=== PATIENT | female | born 1980 | race Caucasian/White ===

== ENCOUNTER 2017-03-27 11:35 | Inpatient (IN) | payer OTHER ==
[~2017-03-27] VITALS: Ht 175.3 cm; Wt 104.4 kg
[2017-03-27 21:11] VITALS: PULSE 76
[2017-03-27 21:12] VITALS: Ht 175.3 cm; Wt 104.4 kg
[2017-03-27 21:14] VITALS: BP 123/64; RESP 17
[2017-03-27] MEDS ORDERED: ONDANSETRON 4 MG INJ IV PRN (22:00)
[2017-03-27] MEDS ORDERED: DOCUSATE SODIUM 100 MG CAP PO PRN (22:00)
[2017-03-27] MEDS ORDERED: NACL 0.9% 3 ML SYG IV SCH (22:00)
[2017-03-27] MEDS: CEFTRIAXONE 1 GM/50 ML (PMX) 50 ML IVPB SCH (23:06)
[2017-03-28] VITALS (12 sets, daily range): BP systolic 94–109; BP diastolic 54–66; PULSE 65–75; RESP 17–19
[2017-03-28] MEDS ORDERED: DOCU-144 PO (02:51)
[2017-03-28 06:22] LABS: BASOPHILS % 0.5 % (0.0-2.0); EOSINOPHILS # 0.2 10^3/ul (0.0-0.5); EOSINOPHILS % 3.5 % (0.0-7.0); HEMATOCRIT 34.3 % (37.0-47.0); LYMPHOCYTES # 2.1 10^3/ul (0.8-2.9); LYMPHOCYTES % 30.8 % (15.0-51.0); MEAN CORPUSCULAR HEMOGLOBIN 30.5 pg (29.0-33.0); MEAN CORPUSCULAR HGB CONC 32.1 g/dl (32.0-37.0); MEAN PLATELET VOLUME 10.3 fl (7.4-10.4); MONOCYTE # 0.5 10^3/ul (0.3-0.9); MONOCYTES % 7.8 % (0.0-11.0); NEUTROPHIL # 3.8 10^3/ul (1.6-7.5); NEUTROPHILS % 57.1 % (39.0-77.0); PLATELET COUNT 273 10^3/UL (140-415); RED BLOOD COUNT 3.61 10^6/ul (4.20-5.40); RED CELL DISTRIBUTION WIDTH 13.4 % (11.5-14.5); WHITE BLOOD COUNT 6.7 10^3/ul (4.8-10.8)
[2017-03-28 06:48] LABS: CALCIUM 8.4 mg/dl (8.4-10.2); CREATININE 0.68 mg/dl (0.44-1.00); POTASSIUM 4.6 mmol/L (3.5-5.1)
[2017-03-28] MEDS: MULTIVITAMINS THERAPEUTIC TAB PO SCH (08:06)
[2017-03-28] MEDS: FAMOTIDINE 20 MG TAB NGT SCH ×2 (08:06→21:06)
[2017-03-28] MEDS: ACETAMINOPHEN 325 MG TAB PO PRN ×2 (08:06→15:34)
[2017-03-28] MEDS: ENOXAPARIN 40 MG/0.4 ML SYG SC SCH (08:13)
--- NOTE | 2017-03-28 13:50 | PN ---
Date/Time of Note Date/Time of Note DATE: 03/28/17 TIME: 13:50 Assessment/Plan VTE Prophylaxis VTE Prophylaxis Intervention: ambulation Lines/Catheters IV [facility] Saline Lock Urinary Cath still in place: No Assessment/Plan Chief Complaint/Hosp Course 1. Vaginal bleeding 2. pt, vaginal delivery date per chart 03/18/2017, did not survive 3. Overweight 4. Left v. saphena thrombosis. Problems: Assessment/Plan 1. GYNecology on awake counselor Dr Cosme, talked to him 2. Dr Arthur for hematology consult, being called 3. DVT treatment started in [facility], continue 4. morning labs Subjective 24 Hr Interval Summary Constitutional: no complaints Respiratory: no complaints Gastrointestinal: no complaints Genitourinary: bleeding (vaginally ) Exam/Review of Systems Vital Signs Vitals Vital Signs Date Time Temp Pulse Resp B/P Pulse Ox O2 Delivery O2 Flow Rate FiO2 03/28/17 12:05 71 03/28/17 11:25 97.6 18 108/59 99 Intake and Output 03/27/17 03/27/17 03/28/17 15:00 23:00 07:00 Intake Total 170 ml Balance 170 ml Exam bilateral breast pain Constitutional: alert, oriented Psych: no complaints Head: normocephalic Eyes: nl conjunctiva Neck: supple Respiratory: clear to auscultation Cardiovascular: regular rate and rhythm Gastrointestinal: soft Genitourinary - Female: other (vaginal bleeding) Musculoskeletal: swelling (left thigh) Extremities: normal pulses Results Result Diagram: 03/28/17 0600 03/28/17 0600 Results 24 hrs Laboratory Tests Test 03/28/17 06:00 White Blood Count 6.7 Red Blood Count 3.61 L Hemoglobin 11.0 L Hematocrit 34.3 L Mean Corpuscular Volume 95.0 Mean Corpuscular Hemoglobin 30.5 Mean Corpuscular Hemoglobin Concent 32.1 Red Cell Distribution Width 13.4 Platelet Count 273 Mean Platelet Volume 10.3 Neutrophils % 57.1 Lymphocytes % 30.8 Monocytes % 7.8 Eosinophils % 3.5 Basophils % 0.5 Nucleated Red Blood Cells % 0.0 Neutrophils # 3.8 Lymphocytes # 2.1 Monocytes # 0.5 Eosinophils # 0.2 Basophils # 0.0 Nucleated Red Blood Cells # 0.0 Sodium Level 141 Potassium Level 4.6 Chloride Level 106 Carbon Dioxide Level 24 Anion Gap 16 Blood Urea Nitrogen 13 Creatinine 0.68 Glucose Level 89 Calcium Level 8.4 Medications Medications Current Medications Acetaminophen (Tylenol Tab) 650 mg Q4H PRN PO PAIN AND OR ELEVATED TEMP Last administered on 03/28/17 08:06; Admin Dose 650 MG; Start 03/27/17 at 22:00 Ondansetron HCl (Zofran Inj) 4 mg Q6H PRN IV NAUSEA AND/OR VOMITING; Start 03/03 at 22:00 Famotidine (Pepcid) 20 mg BID NGT Last administered on 03/28/17 08:06; Admin Dose 20 MG; Start 03/28/17 at 09:00 Enoxaparin Sodium 40 mg 40 mg DAILY SC Last administered on 03/28/17 08:13; Admin Dose 40 MG; Start 03/28/17 at 09:00 Ceftriaxone Sodium (Rocephin) 50 ml @ 100 mls/hr Q24H IVPB Last administered on 03/27/17 23:06; Admin Dose 100 MLS/HR; Start 03/27/17 at 22:00 Docusate Sodium (Colace) 100 mg BID PRN PO CONSTIPATION; Start 03/27/17 at 22: 00 Multivitamins Therapeutic (Theragran) 1 tab DAILY PO Last administered on 03/28 08:06; Admin Dose 1 TAB; Start 03/28/17 at 09:00 FERCHO JULES Mar 28, 2017 13:50
--- NOTE | 2017-03-28 16:58 | QN ---
Documentation Comment pt with normal amount of vag bleeding post delivery hh stable vss a/p superficial thrombphlebitis-treat as needed vag bleeding is normal-hh 11 and minimla bleeding per pt signing off. reconsult as needed KERRY JOSE MD Mar 28, 2017 16:58
[2017-03-28] MEDS: CEFTRIAXONE 1 GM/50 ML (PMX) 50 ML IVPB SCH (21:06)
[2017-03-29] VITALS (12 sets, daily range): BP systolic 95–107; BP diastolic 55–66; PULSE 60–110; RESP 16–21
[2017-03-29 06:39] LABS: BASOPHILS % 0.5 % (0.0-2.0); EOSINOPHILS # 0.3 10^3/ul (0.0-0.5); EOSINOPHILS % 3.9 % (0.0-7.0); HEMATOCRIT 35.2 % (37.0-47.0); HEMOGLOBIN 11.2 g/dl (12.0-16.0); LYMPHOCYTES # 1.7 10^3/ul (0.8-2.9); LYMPHOCYTES % 27.2 % (15.0-51.0); MEAN CORPUSCULAR HEMOGLOBIN 30.3 pg (29.0-33.0); MEAN CORPUSCULAR HGB CONC 31.8 g/dl (32.0-37.0); MEAN CORPUSCULAR VOLUME 95.1 fl (82.0-101.0); MEAN PLATELET VOLUME 10.7 fl (7.4-10.4); MONOCYTE # 0.5 10^3/ul (0.3-0.9); MONOCYTES % 7.7 % (0.0-11.0); NEUTROPHIL # 3.8 10^3/ul (1.6-7.5); NEUTROPHILS % 60.2 % (39.0-77.0); PLATELET COUNT 292 10^3/UL (140-415); RED CELL DISTRIBUTION WIDTH 13.1 % (11.5-14.5); WHITE BLOOD COUNT 6.4 10^3/ul (4.8-10.8)
[2017-03-29 07:23] LABS: CALCIUM 8.7 mg/dl (8.4-10.2); CREATININE 0.7 mg/dl (0.44-1.00); POTASSIUM 4.8 mmol/L (3.5-5.1)
[2017-03-29] MEDS: MULTIVITAMINS THERAPEUTIC TAB PO SCH (08:51)
[2017-03-29] MEDS: FAMOTIDINE 20 MG TAB NGT SCH ×2 (08:51→20:45)
[2017-03-29] MEDS: ENOXAPARIN 40 MG/0.4 ML SYG SC SCH (08:57)
--- NOTE | 2017-03-29 10:22 | PN ---
Date/Time of Note Date/Time of Note DATE: 03/29/17 TIME: 10:19 Assessment/Plan VTE Prophylaxis VTE Prophylaxis Intervention: LMWH Lines/Catheters IV [facility] Saline Lock Urinary Cath still in place: No Assessment/Plan Chief Complaint/Hosp Course 1. Vaginal bleeding 2. pt, vaginal delivery date per chart 03/18/2017, did not survive 3. Overweight 4. Left v. saphena thrombosis. Problems: Assessment/Plan 1. Continue Lovenox Subjective 24 Hr Interval Summary Constitutional: improved, no complaints Exam/Review of Systems Vital Signs Vitals Vital Signs Date Time Temp Pulse Resp B/P Pulse Ox O2 Delivery O2 Flow Rate FiO2 03/29/17 08:02 68 03/29/17 07:23 98.3 21 100/60 95 Intake and Output 03/28/17 03/28/17 03/29/17 15:00 23:00 07:00 Intake Total 550 ml 220 ml Balance 550 ml 220 ml Exam Constitutional: alert, oriented Respiratory: clear to auscultation Cardiovascular: regular rate and rhythm Genitourinary - Female: other (changing the pads every 4 hours, scant ampont dark red blood) Results Result Diagram: 03/29/17 0552 03/29/17 0552 Results 24 hrs Laboratory Tests Test 03/29/17 05:52 White Blood Count 6.4 Red Blood Count 3.70 L Hemoglobin 11.2 L Hematocrit 35.2 L Mean Corpuscular Volume 95.1 Mean Corpuscular Hemoglobin 30.3 Mean Corpuscular Hemoglobin Concent 31.8 L Red Cell Distribution Width 13.1 Platelet Count 292 Mean Platelet Volume 10.7 H Neutrophils % 60.2 Lymphocytes % 27.2 Monocytes % 7.7 Eosinophils % 3.9 Basophils % 0.5 Nucleated Red Blood Cells % 0.0 Neutrophils # 3.8 Lymphocytes # 1.7 Monocytes # 0.5 Eosinophils # 0.3 Basophils # 0.0 Nucleated Red Blood Cells # 0.0 Sodium Level 142 Potassium Level 4.8 Chloride Level 107 Carbon Dioxide Level 25 Anion Gap 15 Blood Urea Nitrogen 15 Creatinine 0.70 Glucose Level 85 Calcium Level 8.7 Medications Medications Current Medications Acetaminophen (Tylenol Tab) 650 mg Q4H PRN PO PAIN AND OR ELEVATED TEMP Last administered on 03/28/17t 15:34; Admin Dose 650 MG; Start 03/27/17 at 22:00 Ondansetron HCl (Zofran Inj) 4 mg Q6H PRN IV NAUSEA AND/OR VOMITING; Start 03/03 at 22:00 Famotidine (Pepcid) 20 mg BID NGT Last administered on 03/29/17 08:51; Admin Dose 20 MG; Start 03/28/17 at 09:00 Enoxaparin Sodium 40 mg 40 mg DAILY SC Last administered on 03/29/17 08:57; Admin Dose 40 MG; Start 03/28/17 at 09:00 Ceftriaxone Sodium (Rocephin) 50 ml @ 100 mls/hr Q24H IVPB Last administered on 03/28/17 21:06; Admin Dose 100 MLS/HR; Start 03/27/17 at 22:00 Docusate Sodium (Colace) 100 mg BID PRN PO CONSTIPATION; Start 03/27/17 at 22: 00 Multivitamins Therapeutic (Theragran) 1 tab DAILY PO Last administered on 03/29 08:51; Admin Dose 1 TAB; Start 03/28/17 at 09:00 FERCHO JULES Mar 29, 2017 10:22
[2017-03-29] MEDS: CIPROFLOXACIN 250 MG TAB PO SCH (17:29)
[2017-03-30] VITALS (10 sets, daily range): BP systolic 97–115; BP diastolic 51–73; PULSE 63–75; RESP 16–20
[2017-03-30] MEDS: CIPROFLOXACIN 250 MG TAB PO SCH ×2 (06:19→18:42)
--- NOTE | 2017-03-30 08:24 | CONS ---
Date/Time of Note Date/Time of Note DATE: 03/30/17 TIME: 08:22 Assessment/Plan Assessment/Plan Chief Complaint/Hosp Course 36 yo with DVT post #continue Xarelto 15mg po BID x 3 weeks followed by 20 mg q day #Will perform hypercoagulable workup as an out patient #Repeat ultrasound as an out patient Problems: Consultation Date/Type/Reason Admit Date/Time Mar 27, 2017 at 20:46 Initial Consult Date March 30 Type of Consultation: Hematology Reason for Consultation DVT with post bleeding Referring Provider: PETER MOREAU MD 24 HR Interval Summary Free Text/Dictation e. Exam/Review of Systems Vital Signs Vitals Vital Signs Date Time Temp Pulse Resp B/P Pulse Ox O2 Delivery O2 Flow Rate FiO2 03/30/17 08:15 68 03/30/17 07:44 98.1 20 97/60 100 Intake and Output 03/29/17 03/29/17 03/30/17 15:00 23:00 07:00 Intake Total 600 ml 300 ml Balance 600 ml 300 ml Exam Constitutional: alert, oriented Psych: no complaints Head: normocephalic Eyes: nl conjunctiva ENMT: nl external ears & nose Neck: non-tender, supple Respiratory: clear to auscultation, normal air movement Cardiovascular: nl pulses, regular rate and rhythm Gastrointestinal: soft Genitourinary - Female: other (cystic lump under left labia) Musculoskeletal: nl extremities to inspection, other (left thigh swelling) Neurological: SUPERVISOR ELECTROLYTIC TINNING II-XII intact Results Result Diagram: 03/29/17 0552 03/29/17 0552 Imaging Free Text/Dictation Bilateral LE AJ 03/26/17 Thrombosed tortuous and enlarged superficial vein in region of the great saphenous vein the left mid thigh area. Consistent with superficial thrombophlebitis. No evidence of DVT Medications Medications Current Medications Acetaminophen (Tylenol Tab) 650 mg Q4H PRN PO PAIN AND OR ELEVATED TEMP Last administered on 03/28/17 15:34; Admin Dose 650 MG; Start 03/27/17 at 22:00 Ondansetron HCl (Zofran Inj) 4 mg Q6H PRN IV NAUSEA AND/OR VOMITING; Start 03/03 at 22:00 Famotidine (Pepcid) 20 mg BID NGT Last administered on 03/29/17 20:45; Admin Dose 20 MG; Start 03/28/17 at 09:00 Enoxaparin Sodium (Lovenox) 40 mg DAILY SC Last administered on 03/29/17 08: 57; Admin Dose 40 MG; Start 03/28/17 at 09:00 Docusate Sodium (Colace) 100 mg BID PRN PO CONSTIPATION; Start 03/27/17 at 22: 00 Multivitamins Therapeutic (Theragran) 1 tab DAILY PO Last administered on 03/29 08:51; Admin Dose 1 TAB; Start 03/28/17 at 09:00 Ciprofloxacin (Cipro) 250 mg BID@06,18 PO Last administered on 03/30/17 06:19 ; Admin Dose 250 MG; Start 03/29/17 at 18:00 RADHA CHRISTIANSEN M.D. Mar 30, 2017 08:23
[2017-03-30] MEDS: FAMOTIDINE 20 MG TAB NGT SCH ×2 (09:02→21:11)
[2017-03-30] MEDS: MULTIVITAMINS THERAPEUTIC TAB PO SCH (09:02)
[2017-03-30] MEDS: ENOXAPARIN 40 MG/0.4 ML SYG SC SCH (09:07)
--- NOTE | 2017-03-30 09:38 | CONS ---
Date/Time of Note Date/Time of Note DATE: 03/30/17 TIME: 09:35 Assessment/Plan Assessment/Plan Chief Complaint/Hosp Course 36 yo with superficial thrombosis of the left mid thigh area in the post setting. Pt currently on anticoagulation and is no longer having post bleeding. #continue Xarelto 15mg po BID x 3 weeks followed by 20 mg q day #Will perform hypercoagulable workup as an out patient #Repeat ultrasound as an out patient A total of 50 minutes of face to face time was spent speaking with the patient, of which greater than 50% was spent in counseling and coordination of care and the detailed question and answer session. Problems: Consultation Date/Type/Reason Admit Date/Time Mar 27, 2017 at 20:46 Date of Consultation: Mar 30, 2017 Type of Consultation: Hematology Reason for Consultation LLE superficial thrombophlebitis Referring Provider: PETER MOREAU MD Hx of Present Illness 36 yo female with multiple prior pregnancies, who recently was admitted to [facility] to deliver a baby. Pt unfortunately had a sill . She was also with superficial thrombosis of LLE region for which she is now on anticoagulation. Pt was having typical post bleeding which has since subsided. Her Hg is currently stable. Constitutional: no complaints Respiratory: no complaints Gastrointestinal: no complaints Genitourinary: bleeding (vaginally ) Psychological: no complaints Past Surgical History Appendectomy in 1993 Family History Significant Family History: no pertinent family hx Social History Alcohol Use: none Smoking Status: Never smoker Drug Use: none Exam/Review of Systems Vital Signs Vitals Vital Signs Date Time Temp Pulse Resp B/P Pulse Ox O2 Delivery O2 Flow Rate FiO2 03/30/17 08:15 68 03/30/17 07:44 98.1 20 97/60 100 Intake and Output 03/29/17 03/29/17 03/30/17 15:00 23:00 07:00 Intake Total 600 ml 300 ml Balance 600 ml 300 ml Exam Constitutional: alert, oriented Psych: no complaints Head: normocephalic Eyes: nl conjunctiva ENMT: nl external ears & nose Neck: non-tender, supple Respiratory: clear to auscultation, normal air movement Cardiovascular: regular rate and rhythm Musculoskeletal: other (L thigh swelling) Results Bilateral LE AJ 03/26/17 Thrombosed tortuous and enlarged superficial vein in region of the great saphenous vein the left mid thigh area. Consistent with superficial thrombophlebitis. No evidence of DVT Result Diagram: 03/29/1752 03/29/1752 Medications Medications Current Medications Acetaminophen (Tylenol Tab) 650 mg Q4H PRN PO PAIN AND OR ELEVATED TEMP Last administered on 03/28/17 15:34; Admin Dose 650 MG; Start 03/27/17 at 22:00 Ondansetron HCl (Zofran Inj) 4 mg Q6H PRN IV NAUSEA AND/OR VOMITING; Start 03/03 at 22:00 Famotidine (Pepcid) 20 mg BID NGT Last administered on 03/30/17 09:02; Admin Dose 20 MG; Start 03/28/17 at 09:00 Enoxaparin Sodium (Lovenox) 40 mg DAILY SC Last administered on 03/30/17 09: 07; Admin Dose 40 MG; Start 03/28/17 at 09:00 Docusate Sodium (Colace) 100 mg BID PRN PO CONSTIPATION; Start 03/27/17 at 22: 00 Multivitamins Therapeutic (Theragran) 1 tab DAILY PO Last administered on 03/30 09:02; Admin Dose 1 TAB; Start 03/28/17 at 09:00 Ciprofloxacin (Cipro) 250 mg BID@,18 PO Last administered on 03/30/17 06:19 ; Admin Dose 250 MG; Start 03/29/17 at 18:00 RADHA CHRISTIANSEN M.D. Mar 30, 2017 09:38
--- NOTE | 2017-03-30 11:33 | PDOCDIS ---
Discharge Instructions DIAGNOSIS Discharge Diagnosis Superficial thrombophelbitis > 5 cm Post CONDITION Patient Condition: Fair HOME CARE INSTRUCTIONS: Diet Instructions: Reduced SodiumSpecial Diet: Regular ACTIVITY: Activity Restrictions: Slowly Increase Activity FOLLOW UP/APPOINTMENTS Follow-up Plan f/u PCP in 1 week f/u Dr Arthur in 3 weeks f/u OBGYN ( her own ) in 2 -3 weeks Return to Er if noticed severe vaginal bleeding, hematuria, hematemejuan manuel ortega brbpr BHASIN, RUCHIKA MD Mar 30, 2017 11:33
[2017-03-30] MEDS ORDERED: CIPR-193 PO (11:35)
--- NOTE | 2017-03-30 14:40 | HP ---
DATE OF ADMISSION: 03/27/2017 REASON FOR ADMISSION: Transfer from [facility] for insurance reason. The patient has supe rficial thrombus of the left saphenous vein. HISTORY OF PRESENT ILLNESS: This is a 36-year-old woman with a past medical history of a vaginal bi rth delivery, she had delivered her eighth child which was a stillbirth 7 days ago 03/18/2017 after that she started noticing a left groin pain with the left lump. The pain was getting worse and made her worried and came to the emergency department in the [facility]. The patient had a DVT of the left leg that showed thrombus tortuous and large superficial vein in the region of the left great saphenous vein in the mid thigh area consistent with superficial thrombophlebitis. No sonogra phic evidence of deep vein thrombosis; however, patient was having bleeding. H and H, he moglobin was 10.9. The patient was seen by hematology and also with CHUCK TENDER. During the admission a nd per hematology patient can be started on Lovenox 40 and can be switched to Xarelto. The patient was seen by CHUCK TENDER as per them there were no contraindications for starting on anticoagulation. The patient was then transferred to [facility] for insurance reason. Currently, the patient denies any complaints, just except that she has left groin pain. PAST MEDICAL HISTORY: No significant past medical history. ALLERGIES: NONE. PAST SURGICAL HISTORY: Appendectomy in 1993, at 14 years. FAMILY HISTORY: No family history of any blood clotting disorder. SOCIAL HISTORY: Denies any history of smoking, alcohol or any drug use. Currently lives at home, h as 7 children, all delivered vaginally. No history of stillbirths in the past. REVIEW OF SYSTEMS: The patient denied any chest pain, any shortness of breath, any dizziness. Juan Manuel es any orthopnea, PND. Has some mild lower extremity edema. Denies any hematemesis, any melena. T he patient has been having some saturating some pads 1 to 2 pads per day after her delivery. Denies any hematemesis, any melena. Denies any focal neurological deficits. PHYSICAL EXAMINATION: VITAL SIGNS: Heart rate 89, saturating 96%, blood pressure 115/81, respirations 18. The patient is afebrile. GENERAL: Patient is awake, alert, oriented, does not appear to be in any acute distress. HEENT: Pupils equal, round, reactive to light. NECK: Supple, no JVD. HEART: Regular rate and rhythm. No murmur, rub or gallop. LUNGS: Clear to auscultate bilaterally. ABDOMEN: Soft, nontender, nondistended, positive normoactive bowel sounds. EXTREMITIES: Patient has tenderness and swelling and induration to the left proximal medial thigh e xtending to the left groin region. The patient also has a left Bartholin's cyst in the left labial region. NEUROLOGIC: Nonfocal. DIAGNOSTIC DATA: White count was 7.8, hemoglobin was 10.9. Patient had an ultrasound. BMP within normal limit. Patient had an ultrasound of the lower extremity duplex bilaterally. Had thrombosed or chills and a large superficial vein in the region of the left great saphenous vein in the mid thi gh consistent with superficial phlebitis, no sonographic appearance of DVT. ASSESSMENT AND PLAN: This is a 36-year-old woman presenting with: 1. Left thigh groin swelling secondary to superficial torsion and enlarged superficial vein in the region of left great saphenous vein and mid thigh area consistent with superficial thrombophlebitis. No evidence of DVT. 2. bleeding which appears to be controlled. 3. A Bartholin's cyst left labia. 4. UTI. PLAN: At this period of time. The patient is admitted to med/surg unit. The patient was started on Loven ox 40 there at [facility]. Will be continued on that. We will monitor the patient for postp artum bleeding. E COMMERCE ARCHITECT consultation has already been requested and a hematology consultation with Dr. Kareen Arthur has been requested. The patient will be continued on Rocephin. Urine cultures were se nt. Rest of the treatment will depend on the patient's hospitalization course. Dictated By: PETER MOREAU RB/ADIEL Conf#: [id number] DID#: [id number] CC: PETER MOREAU;*EndCC*
[2017-03-31 01:53] VITALS: BP 104/55; RESP 18
--- NOTE | 2017-03-31 02:46 | DS ---
DATE OF ADMISSION: 03/27/2017 DATE OF DISCHARGE: 03/31/2017 FINAL DISCHARGE DIAGNOSES: 1. Superficial thrombosis of the left mid-thigh in the setting. 2. bleeding, resolving. 3. Left Bartholin cyst. 4. Urinary tract infection. HISTORY OF PRESENT ILLNESS AND HOSPITAL COURSE: This is a 36-year-old woman who delivered a stillbirth 7 days ago, who was initially admitted at [facility], found to have superficial thrombosis of the left saphenous vein, was transferred to [facility] for insurance reasons. The patient' s clot size was greater than 5 cm and given the clot size and post period , the patient was considered a candidate for anticoagulation therapy. The patient was initially started on Lovenox 40, as per [place] soil technician , and then was seen by Dr. Arthur here. According to her recommendation, patient was continued on Lovenox 40 and then her recommendations were patient can go home on Xarelto 15 mg p.o. b.i.d. for 3 weeks, followed by 20 mg p.o. daily. She will do hypercoagulable workup as an outpatient, and also repeat an ultrasound as an outpatient. The patient was feeling much better. Patient was also seen by Dr. Petty and as per ____, there is minimal bleeding and there is no contraindication for starting the patient on anticoagulation. Patient's H and H stayed stable. Hemoglobin 11.2 and currently patient is stable to be discharged home. However insurance didnt approve xarelto so per Dr Arthur pt can go home on lovenox 80 x 6 weeks with home health nurse DISCHARGE INSTRUCTIONS: 1. Cipro 250 b.i.d. for 3 more days. 2. lovenox 80 mg subq dailly x 6 weeks with home health nurse The patient will be seen by Dr. Arthur in 3 weeks. 3. The patient was instructed to return to the ER if she notices worsening vaginal bleeding, clots, hematemesis, melena, bright red blood per rectum. 4. Patient was instructed to follow with PCP in about 1 week, Dr. Arthur in about 3 weeks and CHILD AND ADOLESCENT PSYCHIATRIST in about 1 to 2 weeks. Dictated By: PETER VALLES/ADIEL Conf#: [id number] DID#: [id number] CC: IRVING TREADWELL MD;*EndCC* MTDD
[2017-03-31] MEDS: CIPROFLOXACIN 250 MG TAB PO SCH ×2 (06:20→18:02)
[2017-03-31 07:41] VITALS: BP 121/58; RESP 16
[2017-03-31] MEDS: MULTIVITAMINS THERAPEUTIC TAB PO SCH (08:18)
[2017-03-31] MEDS: FAMOTIDINE 20 MG TAB NGT SCH ×2 (08:18→21:45)
[2017-03-31] MEDS: ENOXAPARIN 40 MG/0.4 ML SYG SC SCH (08:21)
[2017-03-31] MEDS ORDERED: VITAMIN A & D 5 GM OINT PACKET TOP ONE (11:16)
--- NOTE | 2017-03-31 12:20 | PN ---
Date/Time of Note Date/Time of Note DATE: 03/31/17 TIME: :17 Assessment/Plan VTE Prophylaxis VTE Prophylaxis Intervention: LMWH Lines/Catheters IV Catheter Type (from Nrs): Saline Lock Urinary Cath still in place: No Assessment/Plan Chief Complaint/Hosp Course 1Left thigh groin swelling secondary to superficial torsion and enlarged superficial vein in the region of left great saphenous vein and mid thigh area consistent with superficial thrombophlebitis. No evidence of DVT. 2. bleeding which appears to be controlled. 3. A Bartholin's cyst left labia. 4. UTI. Recs Since xarelto not approved by insurance, spoke with Dr Arthur will send home with lovenox 80 x 6 weeks, f/u Dr Arthur in 3 weeks Problems: Subjective 24 Hr Interval Summary Free Text/Dictation Insurance did not approve xarelto Will give lovenox spoke to Dr Woods Pt has just spotting Exam/Review of Systems Vital Signs Vitals Vital Signs Date Time Temp Pulse Resp B/P Pulse Ox O2 Delivery O2 Flow Rate FiO2 03/31/17 07:41 98.0 70 16 121/58 100 Intake and Output 03/30/17 03/30/17 03/31/17 15:00 23:00 07:00 Intake Total 250 ml Balance 250 ml Exam Gen:awake,alert Neck:supple : Left barothlin cyst left thiogh groin thrombophebiltis Results Result Diagram: 03/29/17 0552 03/29/17 0552 Medications Medications Current Medications Acetaminophen (Tylenol Tab) 650 mg Q4H PRN PO PAIN AND OR ELEVATED TEMP Last administered on 03/28/17 15:34; Admin Dose 650 MG; Start 03/27/17 at 22:00 Ondansetron HCl (Zofran Inj) 4 mg Q6H PRN IV NAUSEA AND/OR VOMITING; Start 03/03 at 22:00 Famotidine (Pepcid) 20 mg BID NGT Last administered on 03/31/17 08:18; Admin Dose 20 MG; Start 03/28/17 at 09:00 Enoxaparin Sodium (Lovenox) 40 mg DAILY SC Last administered on 03/31/17 08: 21; Admin Dose 40 MG; Start 03/28/17 at 09:00 Docusate Sodium (Colace) 100 mg BID PRN PO CONSTIPATION; Start 03/27/17 at 22: 00 Multivitamins Therapeutic (Theragran) 1 tab DAILY PO Last administered on 03/31 08:18; Admin Dose 1 TAB; Start 03/28/17 at 09:00 Ciprofloxacin (Cipro) 250 mg BID@ PO Last administered on 03/31/17 06:20 ; Admin Dose 250 MG; Start 03/29/17 at 18:00 PETER MOREAU MD Mar 31, 2017 12:20
[2017-03-31] MEDS ORDERED: ENOX80DI12 SC (12:21)
--- NOTE | 2017-03-31 13:03 | CONS ---
Date/Time of Note Date/Time of Note DATE: 03/31/17 TIME: 13:00 Assessment/Plan Assessment/Plan Chief Complaint/Hosp Course 36 yo with superficial thrombosis of the left mid thigh area in the post setting. Pt currently on anticoagulation and is no longer having post bleeding. #since Xarelto cannot get approved will send out on Lovenox 80mg q day x 6 week total #Will perform hypercoagulable workup as an out patient #Repeat ultrasound as an out patient A total of 50 minutes of face to face time was spent speaking with the patient, of which greater than 50% was spent in counseling and coordination of care and the detailed question and answer session. Problems: Consultation Date/Type/Reason Admit Date/Time Mar 27, 2017 at 20:46 Initial Consult Date 03/28/17 Type of Consultation: Hematology Reason for Consultation superficial thrombophlebitis Referring Provider: PETER MOREAU MD 24 HR Interval Summary Free Text/Dictation no acute overnight events. cannot get Xarelto approved Exam/Review of Systems Vital Signs Vitals Vital Signs Date Time Temp Pulse Resp B/P Pulse Ox O2 Delivery O2 Flow Rate FiO2 03/31/17 07:41 98.0 70 16 121/58 100 Intake and Output 03/30/17 03/30/17 03/31/17 15:00 23:00 07:00 Intake Total 250 ml Balance 250 ml Exam Constitutional: alert, oriented Psych: no complaints Head: normocephalic Eyes: nl conjunctiva ENMT: nl external ears & nose, nl lips & teeth Neck: non-tender, supple Respiratory: clear to auscultation Cardiovascular: nl pulses, regular rate and rhythm Gastrointestinal: soft Musculoskeletal: nl extremities to inspection Results Result Diagram: 03/29/17 0552 03/29/17 0552 Medications Medications Current Medications Acetaminophen (Tylenol Tab) 650 mg Q4H PRN PO PAIN AND OR ELEVATED TEMP Last administered on 03/28/17 15:34; Admin Dose 650 MG; Start 03/27/17 at 22:00 Ondansetron HCl (Zofran Inj) 4 mg Q6H PRN IV NAUSEA AND/OR VOMITING; Start 03/03 at 22:00 Famotidine (Pepcid) 20 mg BID NGT Last administered on 03/31/17 08:18; Admin Dose 20 MG; Start 03/28/17 at 09:00 Enoxaparin Sodium (Lovenox) 40 mg DAILY SC Last administered on 03/31/17 08: 21; Admin Dose 40 MG; Start 03/28/17 at 09:00 Docusate Sodium (Colace) 100 mg BID PRN PO CONSTIPATION; Start 03/27/17 at 22: 00 Multivitamins Therapeutic (Theragran) 1 tab DAILY PO Last administered on 03/31 08:18; Admin Dose 1 TAB; Start 03/28/17 at 09:00 Ciprofloxacin (Cipro) 250 mg BID@18 PO Last administered on 03/31/17 06:20 ; Admin Dose 250 MG; Start 03/29/17 at 18:00 RADHA CHRISTIANSEN M.D. Mar 31, 2017 13:03
[2017-03-31 15:27] VITALS: BP 117/70; RESP 16
[2017-03-31 19:31] VITALS: BP 109/60; RESP 18
[2017-04-01 01:27] VITALS: BP 114/57; RESP 18
[2017-04-01] MEDS: CIPROFLOXACIN 250 MG TAB PO SCH (05:55)
[2017-04-01 07:46] VITALS: BP 104/56; RESP 20
[2017-04-01] MEDS: MULTIVITAMINS THERAPEUTIC TAB PO SCH (08:25)
[2017-04-01] MEDS: FAMOTIDINE 20 MG TAB NGT SCH (08:25)
[2017-04-01] MEDS: ENOXAPARIN 40 MG/0.4 ML SYG SC SCH (10:39)
== END 2017-04-01 12:50 | disposition home health service (06) | DRG 774 ==
LOC: TEL 20:46 → MS2 03-30 18:30
PROVIDERS: ADMIT Internal Medicine Nephrology; ATTEND Internal Medicine Nephrology
DX: O72.1 Other immediate postpartum hemorrhage (principal); I82.812 Embolism and thrombosis of superficial veins of left lower extremity; O87.0 Superficial thrombophlebitis in the puerperium; O86.20 Urinary tract infection following delivery, unspecified; Z68.34 Body mass index [BMI] 34.0-34.9, adult; O90.89 Other complications of the puerperium, not elsewhere classified; E66.3 Overweight; N75.0 Cyst of Bartholin's gland; Z79.01 Long term (current) use of anticoagulants
CPT/HCPCS: 80048; 85025; 87081; J0696; J1650